=== PATIENT | male | born 1960 | race Caucasian/White ===

== ENCOUNTER 2019-07-08 11:01 | Inpatient (IN) | payer MEDICAID ==
[~2019-07-08] VITALS: Ht 190.5 cm; Wt 127.0 kg
[2019-07-08] VITALS (14 sets, daily range): BP systolic 139–176; BP diastolic 78–98
--- NOTE | 2019-07-08 11:05 | NUR ---
CALLED RT TO COME TO BEDSIDE
[2019-07-08] MEDS ORDERED: Magnesium 1GM/D5W 100ML PREMIX 200 ML IV ONE ×2 (11:07→11:16)
--- NOTE | 2019-07-08 11:10 | NUR ---
BIBA RA 79 from home "SOB/Wheezing sats 88 RA given 5mg albuterol". PATIENT A/OX4, C/O SOB, LABORED BREATHING, ALSO C/O CHEST PAIN. PATIENT CHANGED INTO GOWN, ATTACHED TO THE PLANT ECOLOGIST. VP COMMUNICATIONS AT BEDSIDE FOR EVAL. NEEDS ATTENDED.
[2019-07-08] MEDS ORDERED: IPRATROPIUM NEB FS 0.5 MG/2.5 ML AMPUL.NEB ONE (11:12)
[2019-07-08] MEDS ORDERED: ALBUTEROL FS 2.5 MG/3 ML VIAL.NEB ONE (11:12)
[2019-07-08] MEDS ORDERED: methylPREDNISolone SOD SUCC 125 MG/2ML VIAL ONE (11:16)
--- NOTE | 2019-07-08 11:20 | NUR ---
IV LINES ESTABLISHED, BLOOD DRAWN AND SENT TO LAB. CAD DESIGNER DRAFTER AT BEDSIDE FOR CXR. PATIENT CURRENTLY RECEIVING BREATHING TREATMENT. RT AT BEDSIDE.
[2019-07-08 11:21] LABS: BASOPHILS % (AUTO) 0.2 % (0.0-2.0); HEMATOCRIT 35 % (39-51); HEMOGLOBIN 12.4 g/dL (13.5-17.5); LYMPHOCYTES # (AUTO) 0.6 /CMM (0.8-4.8); LYMPHOCYTES % (AUTO) 5.2 % (20.0-44.0); MEAN CORPUSCULAR HGB CONC 35 g/dl (31.0-36.0); MEAN CORPUSCULAR VOLUME 92 fL (80-96); MONOCYTES # (AUTO) 0.9 /CMM (0.1-1.30); NEUTROPHILS # (AUTO) 10.2 /CMM (1.8-8.9); NEUTROPHILS % (AUTO) 86.6 % (43.0-81.0); PLATELET COUNT (AUTO) 334 /CMM (150-450); RED BLOOD CELL COUNT(AUTO) 3.84 MIL/uL (4.5-6.0); WHITE BLOOD COUNT (AUTO) 11.7 K/uL (4.3-11.0)
[2019-07-08] MEDS ORDERED: methylPREDNISolone SOD SUCC 125 MG/2ML VIAL IV ONE (11:30)
[2019-07-08] MEDS ORDERED: IPRATROPIUM NEB FS 0.5 MG/2.5 ML AMPUL.NEB NEB ONE (11:30)
[2019-07-08] MEDS ORDERED: ALBUTEROL FS 2.5 MG/3 ML VIAL.NEB CONTNEB ONE (11:30)
[2019-07-08] MEDS ORDERED: CLON2TAB11 PO (11:32)
[2019-07-08 11:42] LABS: ALANINE AMINOTRANSFERASE 57 U/L (12-78); ALBUMIN 3.2 g/dL (3.4-5.0); ALKALINE PHOSPHATASE 233 U/L (46-116); ASPARTATE AMINOTRANSFERASE 68 U/L (15-37); B-TYPE NATRIURETIC PEPTIDE 917 PG/ML (0-125); BILIRUBIN,DIRECT 0.3 mg/dL (0.0-0.2); BILIRUBIN,TOTAL 0.7 mg/dL (0.2-1.0); CALCIUM, SERUM 8.8 mg/dL (8.5-10.1); CARBON DIOXIDE 25 mmol/L (21-32); CREATININE 0.7 mg/dL (0.6-1.3); GLUCOSE 147 mg/dL (74-106); POTASSIUM 5.3 mmol/L (3.5-5.1); TOTAL PROTEIN, SERUM 7.5 g/dL (6.4-8.2); UREA NITROGEN, BLOOD 7 mg/dL (7-18)
[2019-07-08 11:43] LABS: CHLORIDE 74 mmol/L (98-107); SODIUM SERUM 108 mmol/L (136-145)
[2019-07-08] MEDS ORDERED: IOHEXOL-350 100 ML VIAL IV ONE (11:44)
[2019-07-08] MEDS ORDERED: CT SWABBABLE VALVE TRANS SET 1 EA INFUS.SET MC ONE (11:44)
[2019-07-08] MEDS ORDERED: IV NS 0.9% 250 ML IV ONE (11:44)
[2019-07-08] MEDS ORDERED: IV Sodium Chloride 3% 500 ML 500 ML IV ONE (12:00)
[2019-07-08] MEDS ORDERED: CEFTRIAXONE 1GM BAG (ER ONLY) 50 ML IV ONE (12:00)
[2019-07-08] MEDS ORDERED: AZITHROMYCIN 500 MG in IV D5W 250 ML IV ONE (12:00)
[2019-07-08] MEDS ORDERED: LORAZEPAM INJ 2 MG/ML VIAL ONE (12:21)
[2019-07-08] MEDS ORDERED: LORAZEPAM INJ 2 MG/ML VIAL IV ONE (12:30)
--- NOTE | 2019-07-08 12:39 | NUR ---
CALLED [employer]. VENEER CLIPPER WAS PAGED.
--- NOTE | 2019-07-08 12:49 | NUR ---
PER ADMITTING, PATIENT OK TO STAY. PATIENT A/OX4, FAMILY AT BEDSIDE, NO DISTRESS NOTED. STILL ON BREATHING TREATMENT.
[2019-07-08] MEDS ORDERED: FUROSEMIDE 20 MG/2 ML VIAL IV ONE (13:00)
[2019-07-08] MEDS ORDERED: NITROGLYCERIN 30 GM TUBE TP ONE (13:00)
--- NOTE | 2019-07-08 13:02 | NUR ---
CALLED DR JOSHUA SHAY DR
[2019-07-08] MEDS ORDERED: FUROSEMIDE 20 MG/2 ML VIAL ONE (13:04)
[2019-07-08] MEDS ORDERED: NITROGLYCERIN PACKET 1 GM PACKET ONE (13:04)
--- NOTE | 2019-07-08 13:06 | NUR ---
CALLED [facility] FOR ICU BED
--- NOTE | 2019-07-08 13:30 | NUR ---
REPORT GIVEN TO GERMÁN SAWYER.
--- NOTE | 2019-07-08 13:58 | NUR ---
PATIENT TRANSFERRED TO ROOM 262 VIA ACLS PROTOCOL. O2 AT 8LPM VIA SIMPLE MASK. ENDORSED TO ICU NURSE.
--- NOTE | 2019-07-08 14:08 | NUR ---
RN NOTES RECEIVED PT ON BED FROM ER IN ROOM 262, PT IS A/Ox4, ON 5L SIMPLE MASK, O2 SAT 92%, ON TELE ST, HR IN 100'S , NO SKIN ISSUES NOTED, L AND R AC IV SITE G 18 CLEAN, DRY AND INTACT , C/O PAIN ON HIS ABDOMEN , PT STATED PAIN IS NOT RADIATING ANYWHERE, IV 3%NS AT 15CCC/HR RUNNING VIA R HAND IV SITE, DR LEWIS NOTIFED REGARDING ADMISSION ORDERS, SR UP x3, CALL LIGHT WITHIN EASY REACH, BED LOCKED AND IN LOWEST POSITION, CONTINUE TO MONITOR.
[2019-07-08] MEDS ORDERED: LORAZEPAM 1 MG TABLET PO PRN (15:00)
[2019-07-08] MEDS: IBUPROFEN 400 MG TABLET PO SCH ×2 (15:23→20:39)
--- NOTE | 2019-07-08 15:39 | NUR ---
RN NOTES OK TO GIVE ATIVAN 1MG PO x1 NOW PER DR LEWIS ORDER .
--- NOTE | 2019-07-08 15:46 | NUR ---
RN NOTES DR LEWIS NOTIFED REGARDING LA = 5.9
--- NOTE | 2019-07-08 16:00 | NUR ---
RN NOTES 3% NS IV RATE INCREASED TO 50 CC/HR PER DR. LEWIS ORDER .
[2019-07-08] MEDS: CLONIDINE HCL 0.1 MG TABLET PO PRN (16:25)
[2019-07-08] MEDS: THIAMINE HCL 100 MG TABLET PO SCH (16:25)
[2019-07-08] MEDS: FOLIC ACID 1 MG TABLET PO SCH (16:25)
[2019-07-08] MEDS: CHLORDIAZEPOXIDE HCL 25 MG CAPSULE PO SCH (16:25)
[2019-07-08] MEDS: COLCHICINE 0.6 MG TABLET PO SCH (17:07)
[2019-07-08] MEDS: IV Sodium Chloride 3% 500 ML 500 ML IV SCH (17:08)
--- NOTE | 2019-07-08 18:00 | NUR ---
RN NOTES PT IS RESTLESS AND ANXIOUS AT TIMES , SR UP X3, 3% NS AT 50CC/HR RUNNING , SR UP x3, CALL LIGHT WITHIN EASY REACH, BED LOCKED AND IN LOWEST POSITION, WILL ENDOSE TO HONING MACHINE OPERATOR NURSE FOR CONTINUITY OF CARE .
--- NOTE | 2019-07-08 18:23 | NUR ---
RN NOTES PT C/O ABDOMINAL PAIN, DR LEWIS NOTIFIED , NEW ORDER RECEIVED.
[2019-07-08] MEDS: ONDANSETRON HCL/PF 4 MG/2 ML VIAL IV PRN ×2 (18:35→22:21)
[2019-07-08] MEDS: HYDROMORPHONE 1 MG/1 ML DISP.SYRIN IV PRN ×2 (18:35→22:34)
--- NOTE | 2019-07-08 20:00 | NUR ---
RN NOTES RECEIVED PATIENT AWAKE WATCHING TV ON BED WITH O2 5LPM VIA SIMPLE MASK. SATURATION >90%. NO ACUTE RESPIRATORY DISTRESS. AFEBRILE. COLD TO TOUCH AND SWEATING A LOT. PER PATIENT HE ATE DINNER WELL. SR WITH FIRST DEGREE AVB ON TELE MONITOR. COMPLAINED OF UPPER GASTRIC PAIN AND CHEST PAIN. TROPONIN LEVEL WNL. DISTENDED AND FIRM ABDOMEN NOTED. PER PATIENT HE DRINKS ALCOHOL ALMOST EVERYDAY WELL EARLY IN THE MORNING. DENIES NAUSEA AND VOMITING. PRN PAIN MEDICINE GIVEN ORDERED AND ATIVAN FOR ANXIETY FOR POSS. ALCOHOL WITHDRAWAL. WILL CONTINUE TO MONITOR.
[2019-07-08 20:16] LABS: CALCIUM, SERUM 8.5 mg/dL (8.5-10.1); CARBON DIOXIDE 25 mmol/L (21-32); CREATININE 0.8 mg/dL (0.6-1.3); GLUCOSE 208 mg/dL (74-106); POTASSIUM 5.4 mmol/L (3.5-5.1); UREA NITROGEN, BLOOD 6 mg/dL (7-18)
[2019-07-08 20:19] LABS: CHLORIDE 77 mmol/L (98-107); SODIUM SERUM 109 mmol/L (136-145)
[2019-07-08] MEDS: PANTOPRAZOLE 40 MG TABLET.DR PO SCH (20:38)
[2019-07-08] MEDS: LORAZEPAM 1 MG TABLET PO PRN (20:39)
--- NOTE | 2019-07-08 22:39 | NUR ---
REED DIPPER NOTES RECEIVED CALL FROM DR LEWIS, SODIUM LEVEL 109, RELAYED TO . NO NEW ORDERS RECEIVED AT THIS TIME, PRIMARY NURSE SEBASTIEN NOTIFIED, CHARGE NURSE ESTEFANY NOTIFIED
--- NOTE | 2019-07-08 22:50 | NUR ---
RN NOTES CALLED AND SPOKE TO JOSHUA SCALES REGARDING PATIENT SODIUM 109 AND CHLORIDE 77 WELL POTASSIUM OF 5.4 AND PATIENT IS BEEN COMPLAINING OF UPPER GASTRIC PAIN AND VOMITED X1 WITH FOOD CONTENT. MD AWARE AND WITH ORDER TO GIVE PROTONIX BID. NOTED AND CARRIED OUT ORDER.
[2019-07-09] VITALS (32 sets, daily range): BP systolic 113–187; BP diastolic 61–117
[2019-07-09] MEDS: CLONIDINE HCL 0.1 MG TABLET PO PRN ×2 (00:12→13:24)
[2019-07-09] MEDS ORDERED: IV Sodium Chloride 3% 500 ML 500 ML IV ONE (02:02)
[2019-07-09] MEDS: IV Sodium Chloride 3% 500 ML 500 ML IV SCH ×2 (02:06→10:41)
[2019-07-09] MEDS: HYDROMORPHONE 1 MG/1 ML DISP.SYRIN IV PRN ×4 (02:15→20:27)
[2019-07-09 04:20] LABS: HEMATOCRIT 33 % (39-51); HEMOGLOBIN 11.7 g/dL (13.5-17.5); LYMPHOCYTES # (AUTO) 0.5 /CMM (0.8-4.8); LYMPHOCYTES % (AUTO) 3.8 % (20.0-44.0); MEAN CORPUSCULAR HGB CONC 36 g/dl (31.0-36.0); MEAN CORPUSCULAR VOLUME 92 fL (80-96); MONOCYTES # (AUTO) 1.4 /CMM (0.1-1.30); MONOCYTES % (AUTO) 11.5 % (2.0-12.0); NEUTROPHILS # (AUTO) 10.1 /CMM (1.8-8.9); NEUTROPHILS % (AUTO) 84.7 % (43.0-81.0); PLATELET COUNT (AUTO) 319 /CMM (150-450); RED BLOOD CELL COUNT(AUTO) 3.59 MIL/uL (4.5-6.0); WHITE BLOOD COUNT (AUTO) 11.9 K/uL (4.3-11.0)
[2019-07-09 04:33] LABS: ALANINE AMINOTRANSFERASE 50 U/L (12-78); ALKALINE PHOSPHATASE 211 U/L (46-116); ASPARTATE AMINOTRANSFERASE 49 U/L (15-37); BILIRUBIN,TOTAL 0.7 mg/dL (0.2-1.0); CALCIUM, SERUM 8.8 mg/dL (8.5-10.1); CARBON DIOXIDE 28 mmol/L (21-32); CREATININE 0.8 mg/dL (0.6-1.3); GLUCOSE 155 mg/dL (74-106); POTASSIUM 5.7 mmol/L (3.5-5.1); TOTAL PROTEIN, SERUM 7.2 g/dL (6.4-8.2); UREA NITROGEN, BLOOD 10 mg/dL (7-18)
[2019-07-09] MEDS: ONDANSETRON HCL/PF 4 MG/2 ML VIAL IV PRN ×4 (04:44→20:27)
[2019-07-09] MEDS: IBUPROFEN 400 MG TABLET PO SCH (05:00)
--- NOTE | 2019-07-09 05:00 | NUR ---
RN NOTES HELD PO MEDS AT THIS TIME, PATIENT NAUSEATED AND VOMITED X4.
[2019-07-09 05:03] LABS: SODIUM SERUM 114 mmol/L (136-145)
[2019-07-09 05:04] LABS: CHLORIDE 80 mmol/L (98-107)
--- NOTE | 2019-07-09 06:30 | NUR ---
RN NOTES INFORMED AND UPDATED DR. LEWIS THAT PATIENT STILL VOMITING WITH COFFEE GROUND EMESIS X 5 AND PO MEDS WAS BEEN HELD. PATIENT COMPLAINED OF UPPER GASTRIC PAIN AND CHEST PAIN BUT PRN MEDICINE HELPED WITH PAIN. PER MD TO HAVE A GI CONSULT AND ORDER NPO FOR NOW. NOTED AND CARRIED OUT ORDER. PATIENT MADE AWARE. WILL ENDORSED CONTINUITY OF CARE TO AM NURSE.
[2019-07-09] MEDS ORDERED: SODIUM POLYSTYRENE SULFONATE 15 G/60 ML BOTTLE PO ONE (08:30)
[2019-07-09] MEDS: FOLIC ACID 1 MG TABLET PO SCH (08:43)
[2019-07-09] MEDS: CHLORDIAZEPOXIDE HCL 25 MG CAPSULE PO SCH ×2 (08:43→17:29)
[2019-07-09] MEDS: THIAMINE HCL 100 MG TABLET PO SCH (08:43)
[2019-07-09] MEDS: PANTOPRAZOLE 40 MG TABLET.DR PO SCH (08:43)
[2019-07-09] MEDS ORDERED: DEXTROSE 50%-WATER 50 ML DISP.SYRIN IV PRN (09:00)
[2019-07-09] MEDS: PANTOPRAZOLE 40 MG VIAL IV SCH ×2 (09:31→17:34)
--- NOTE | 2019-07-09 09:50 | NUR ---
RN NOTES 07-RECEIVED PATIENT FROM RN. PATIENT AWAKE, ALERT. PER REPORT HAD SEVERAL EPISODES OF EMESIS. PMD NOTIFIED. 09-SEEN BY DR LEWIS EARLIER, MD SHOWED PATIENT EMESIS AFTER PO MED GIVEN. MD WITH ORDERS. MD DISCUSSED PLANS OF CARE WITH PATIENT
[2019-07-09 10:03] LABS: CALCIUM, SERUM 8.9 mg/dL (8.5-10.1); CREATININE 0.7 mg/dL (0.6-1.3); POTASSIUM 5.5 mmol/L (3.5-5.1)
[2019-07-09] MEDS: COLCHICINE 0.6 MG TABLET PO SCH ×3 (10:36→17:29)
[2019-07-09] MEDS: BLOOD SUGAR DIAGNOSTIC 1 EACH STRIP IN SCH ×2 (11:10→17:43)
[2019-07-09] MEDS: LORAZEPAM INJ 2 MG/ML VIAL IV PRN ×2 (11:28→18:17)
[2019-07-09] MEDS: INSULIN REGULAR, HUMAN 100 UNIT/ML 3 ML VIAL SQ PRN (12:20)
[2019-07-09 14:10] LABS: CREATININE 0.7 mg/dL (0.6-1.3); POTASSIUM 5.1 mmol/L (3.5-5.1)
--- NOTE | 2019-07-09 14:53 | NUR ---
RN NOTES 1230-KAYEXALATE GIVEN ORDERED, PATIENT HAD GOOD AMOUNT OF STOOLS. DR LEWIS NOTIFIED OF BMP RESULTS, MD WITH ORDERS.CONTINUE MONITOR PATIENT STATUS 1400- PATIENT FATHER ZEYNEP VISITS, UPDATED HIM OF PATIENT STATUS. CONTINUE MONITOR PATIENT
--- NOTE | 2019-07-09 19:30 | NUR ---
RN NOTES PATIENT IS AWAKE AND WATCHING TV ON BED. WITH O2 5LPM VIA MASK POONAM. WELL NO ACUTE RESPIRATORY DISTRESS. AFEBRILE. NO EPISODE OF VOMITING PER REPORT. PATIENT LOOKS COMFORTABLE AT THIS TIME. TELE MONITOR REVEALS SR WITH FIRST DEGREE AVB WITH BBB. IV SITE ON RAC AND RFA INTACT AND PATENT RUNNING WITH 0.3 % NACL @ 50 ML.HR PATIENT DENIES CHEST PAIN OR N/V. BED LOCKED AND IN LOWEST POSITION. KEPT CALL LIGHT WITHIN EASY REACH. WILL CONTINUE TO MONITOR.
[2019-07-09 19:54] LABS: CALCIUM, SERUM 8.8 mg/dL (8.5-10.1); CREATININE 0.7 mg/dL (0.6-1.3); POTASSIUM 5.1 mmol/L (3.5-5.1)
--- NOTE | 2019-07-09 21:00 | NUR ---
RN NOTES PATIENT COMPLAINED THAT HE FELT THAT HIS NOSE ARE SO DRY. SATURATION REMAINED >92%. CHANGED O2 VIA MASK TO NC @ 4LPM VIA HUMIDIFIER PLACED BY RT. ALL NEEDS ATTENDED. INSTRUCTED TO USE CALL LIGHT FOR ASSISTANCE.
[2019-07-09] MEDS: IV NS 0.9% 1,000 ML IV PRN (21:40)
[2019-07-10] VITALS (23 sets, daily range): BP systolic 121–175; BP diastolic 74–104
[2019-07-10] MEDS: BLOOD SUGAR DIAGNOSTIC 1 EACH STRIP IN SCH ×4 (00:14→17:24)
[2019-07-10] MEDS: LORAZEPAM INJ 2 MG/ML VIAL IV PRN ×5 (00:20→20:42)
[2019-07-10] MEDS: HYDROMORPHONE 1 MG/1 ML DISP.SYRIN IV PRN ×6 (00:37→20:43)
[2019-07-10] MEDS: ONDANSETRON HCL/PF 4 MG/2 ML VIAL IV PRN ×3 (02:51→16:08)
[2019-07-10] MEDS: CLONIDINE HCL 0.1 MG TABLET PO PRN ×2 (03:31→11:50)
[2019-07-10 04:31] LABS: BASOPHILS % (AUTO) 0.1 % (0.0-2.0); HEMATOCRIT 34 % (39-51); HEMOGLOBIN 11.7 g/dL (13.5-17.5); LYMPHOCYTES # (AUTO) 0.7 /CMM (0.8-4.8); MEAN CORPUSCULAR HGB CONC 34 g/dl (31.0-36.0); MEAN CORPUSCULAR VOLUME 94 fL (80-96); MONOCYTES # (AUTO) 1.4 /CMM (0.1-1.30); MONOCYTES % (AUTO) 9.8 % (2.0-12.0); NEUTROPHILS # (AUTO) 12.3 /CMM (1.8-8.9); NEUTROPHILS % (AUTO) 85.1 % (43.0-81.0); PLATELET COUNT (AUTO) 358 /CMM (150-450); RED BLOOD CELL COUNT(AUTO) 3.62 MIL/uL (4.5-6.0); WHITE BLOOD COUNT (AUTO) 14.4 K/uL (4.3-11.0)
[2019-07-10 04:48] LABS: CALCIUM, SERUM 9.2 mg/dL (8.5-10.1); CREATININE 0.7 mg/dL (0.6-1.3); POTASSIUM 4.8 mmol/L (3.5-5.1)
[2019-07-10] MEDS: IV NS 0.9% 1,000 ML IV PRN ×3 (06:28→21:02)
--- NOTE | 2019-07-10 07:00 | NUR ---
RN NOTES PATIENT CONTINUE TO COMPLAINED OF UPPER ABDOMINAL PAIN. AND FEELING NAUSEOUS PRN PAIN AMEDICINE AND ZOFRAN GIVEN ORDERED AND TOLERATED WELL. WITH EPISODE OF SOB AROUND 2AM PLACED BAKD TO SIMPLE MASK @ 5-6 LPM TOLERATED WELL SATURATION >92%. DR. PANDEY RESIDENTIAL PROPERTY CONSULTANT SEEN AND EXAMINED THE PATIENT AT BEDSIDE NNO. KEPT PT CLEAN AND DRY . ENDORSED CONTINUITY OF CARE TO AM NURSE.
--- NOTE | 2019-07-10 08:30 | NUR ---
ICU/RN: Pt requesting pain medication, zofran and ativan around the clock. Educated on medication use, asked pt to describe pain. Pt states "Oh it hurts everywhere. I'm just sore." Alternative pain management techniques offered.
[2019-07-10] MEDS: THIAMINE HCL 100 MG TABLET PO SCH (08:32)
[2019-07-10] MEDS: CHLORDIAZEPOXIDE HCL 25 MG CAPSULE PO SCH ×2 (08:32→16:08)
[2019-07-10] MEDS: FOLIC ACID 1 MG TABLET PO SCH (08:32)
[2019-07-10] MEDS: COLCHICINE 0.6 MG TABLET PO SCH ×2 (08:33→16:08)
[2019-07-10] MEDS: PANTOPRAZOLE 40 MG VIAL IV SCH ×2 (08:33→16:08)
[2019-07-10] MEDS ORDERED: PIPERACILLIN /TAZOBACTAM 3.375 G in IV D5W 50 ML IV ONE ×2 (09:00→12:00)
[2019-07-10] MEDS: AMLODIPINE BESYLATE 5 MG TABLET PO SCH (09:02)
--- NOTE | 2019-07-10 10:45 | NUR ---
ICU/RN: Pt back from radiology for CT ABD
[2019-07-10] MEDS: PIPERACILLIN /TAZOBACTAM 3.375 G in IV D5W 100 ML IV SCH ×2 (12:48→20:42)
--- NOTE | 2019-07-10 13:30 | NUR ---
ICU/RN: Pt s/p thoracentesis. 1060 cc out. Specimen sent to lab as ordered.
--- NOTE | 2019-07-10 15:15 | NUR ---
ICU/RN: manager inventory management, kitchen supervisor discussing insurance request for transfer to contracted facility. Pt currently refuses, states "I don't think I'm stable enough. I would like to speak with the Dr." Dr Wiggins spoke with pt at length regarding poc, pt continues to be agreeable for downgrade to [facility], and understands he may need to be transferred tomorrow am.
--- NOTE | 2019-07-10 16:30 | NUR ---
ICU/RN: Pt anxious, states "I'm nauseous." Administered zofran and ativan for relief.
--- NOTE | 2019-07-10 16:50 | NUR ---
ICU/RN: Pt transferred to [facility] in stable condition, on SM at 8L/min. Belongings and chart transferred. Frequently reminded not to take off O2 mask
--- NOTE | 2019-07-10 17:04 | NUR ---
RN NOTES RECEIVED PATIENT FROM ICU, AWAKE/ALERT X 4, WITH O2 6LPM VIA MASK POONAM. WELL NO ACUTE RESPIRATORY DISTRESS. AFEBRILE. NO EPISODE OF VOMITING. ON TELE MONITOR ST HR 104. DENIES CHEST PAIN OR DICOMFORT, IV SITE RAC G18 AND RFA G20, BOTH FLUSHES WELL, BOTH SITES CLEAR. BED LOCKED AND IN LOWEST POSITION. KEPT CALL LIGHT WITHIN EASY REACH. NEEDS ANTICIPATED. WILL CONTINUE TO MONITOR.
--- NOTE | 2019-07-10 19:31 | NUR ---
RN NOTES PATIENT RESTING FOR NOW. NOT IN ANY DISTRESS. NO SOB,NO PAIN. ALL NEEDS MET FOR NOW. ENDORSED TO NEXT SHIFT FOR YUSEF.
--- NOTE | 2019-07-10 20:00 | NUR ---
RN NOTES RECEIVED PATIENT AWAKE AMBULATING IN THE BATHROOM. AOX4. NO ACUTE RESPIRATORY DISTRESS. PATIENT HAVE O2 6LPM VIA SIMPLE MASK WHILE ON BED SATURATION 94%. SR WITH FIRST DEGREE AVB W/ BBB AND PAC. DENIES CHEST PAIN AND NAUSEA AND VOMITING. IV SITE ON RAC AND RFA INTACT AND PATENT STARTING NS @ 100 ML/HR INTACT AND PATENT AND INFUSING WELL. COMPLAINED OF UPPER GI PAIN AND ANXIETY. PRN PAIN MEDICINE AND ANTI ANXIETY MEDS WILL GIVEN ORDERED. EDUCATED REGARDING HIS DIAGNOSIS AND VERBALIZED UNDERSTANDING. SMALL WHEEZING HEARD WHEN TALKING BUT DIMINISHED ON BILATERAL LUNG SOUND. KEPT PT CLEAN AND DRY. WILL CONTINUE TO MONITOR CATHY LIGHT KEPT WITHIN EASY REACH.
[2019-07-11] VITALS (7 sets, daily range): BP systolic 144–163; BP diastolic 65–91
[2019-07-11] MEDS: BLOOD SUGAR DIAGNOSTIC 1 EACH STRIP IN SCH ×5 (00:28→23:45)
[2019-07-11] MEDS: LORAZEPAM INJ 2 MG/ML VIAL IV PRN ×6 (00:49→22:06)
[2019-07-11] MEDS: HYDROMORPHONE 1 MG/1 ML DISP.SYRIN IV PRN ×6 (00:49→22:00)
[2019-07-11] MEDS: PIPERACILLIN /TAZOBACTAM 3.375 G in IV D5W 100 ML IV SCH ×3 (04:54→20:40)
[2019-07-11 06:39] LABS: BASOPHILS % (AUTO) 0.2 % (0.0-2.0); EOSINOPHILS % (AUTO) 0.1 % (0.0-6.0); HEMATOCRIT 35 % (39-51); HEMOGLOBIN 11.7 g/dL (13.5-17.5); LYMPHOCYTES # (AUTO) 1.4 /CMM (0.8-4.8); MEAN CORPUSCULAR HGB CONC 34 g/dl (31.0-36.0); MEAN CORPUSCULAR VOLUME 93 fL (80-96); MONOCYTES # (AUTO) 1.4 /CMM (0.1-1.30); MONOCYTES % (AUTO) 11.7 % (2.0-12.0); PLATELET COUNT (AUTO) 344 /CMM (150-450); RED BLOOD CELL COUNT(AUTO) 3.71 MIL/uL (4.5-6.0); WHITE BLOOD COUNT (AUTO) 11.8 K/uL (4.3-11.0)
--- NOTE | 2019-07-11 06:56 | NUR ---
RN NOTES PATIENT ASLEEP WELL ON BED. NO ACUTE RESPIRATORY DISTRESS. ON O2 6LPM VIA MASK,BUT ABLE TO TOLERATE ROOM AIR WHEN GOING TO THE BATHROOM AND SATURATION WELL. ANXIETY STILL NOTED. CONTINUE TO COMPLAINED OF UPPER GASTRIC PAIN . PRN PAIN MEDICINE AND ANTI ANXIETY MEDS GIVEN ORDERED. NO SIGNIFICANT CHANGES NO N/V , DENIES CHEST PAIN. KEPT PT CLEAN AND DRY. WILL CONTINUE TO MONITOR, WILL ENDORSE CONTINUITY OF CARE TO AM NURSE.
[2019-07-11 07:11] LABS: CALCIUM, SERUM 8.5 mg/dL (8.5-10.1); CREATININE 0.8 mg/dL (0.6-1.3)
--- NOTE | 2019-07-11 07:30 | NUR ---
[facility] RN AM NOTES RECEIVED PATIENT IN BED, AWAKE/ALERT X 4, WITH O2 6LPM VIA MASK POONAM. ON AND OFF. WELL TOLERATED. NO ACUTE RESPIRATORY DISTRESS. AFEBRILE. NO EPISODE OF VOMITING. ON TELE MONITOR SINUS RHYTHM. DENIES CHEST PAIN OR DISCOMFORT, IV SITE RAC G18 AND RFA G20, BOTH FLUSHES WELL, BOTH SITES CLEAR. BED LOCKED AND IN LOWEST POSITION. KEPT CALL LIGHT WITHIN EASY REACH. NEEDS ANTICIPATED. WILL CONTINUE TO MONITOR.
[2019-07-11] MEDS ORDERED: METOPROLOL TARTRATE 25 MG TABLET PO SCH (09:00)
[2019-07-11] MEDS: FOLIC ACID 1 MG TABLET PO SCH (09:17)
[2019-07-11] MEDS: COLCHICINE 0.6 MG TABLET PO SCH ×2 (09:17→17:38)
[2019-07-11] MEDS: THIAMINE HCL 100 MG TABLET PO SCH (09:17)
[2019-07-11] MEDS: PANTOPRAZOLE 40 MG VIAL IV SCH ×2 (09:17→17:38)
[2019-07-11] MEDS: AMLODIPINE BESYLATE 5 MG TABLET PO SCH (09:18)
[2019-07-11] MEDS: CHLORDIAZEPOXIDE HCL 25 MG CAPSULE PO SCH ×2 (09:20→17:38)
--- NOTE | 2019-07-11 09:30 | NUR ---
RN NOTES DUE MEDS GIVEN
--- NOTE | 2019-07-11 10:45 | NUR ---
RN NOTES PER DR. LEWIS PATIENT FOR TRANSFER TO [facility] ONCE BED IS AVAILABLE. CASE MANAGEMENT AWARE
[2019-07-11] MEDS: Magnesium 1GM/D5W 100ML PREMIX 100 ML IV SCH ×2 (11:49→13:08)
[2019-07-11] MEDS: INSULIN REGULAR, HUMAN 100 UNIT/ML 3 ML VIAL SQ PRN ×2 (11:56→23:48)
[2019-07-11] MEDS: IV NS 0.9% 1,000 ML IV PRN (15:46)
[2019-07-11] MEDS: ONDANSETRON HCL/PF 4 MG/2 ML VIAL IV PRN (15:46)
--- NOTE | 2019-07-11 19:00 | NUR ---
[facility] RN OPENING NOTES RECEIVED PATIENT IN BED, A/OX4, ABLE TO MAKE NEEDS KNOWN. ON OXYGEN 6LPM VIA MASK, NO ACUTE RESPIRATORY DISTRESS OR CARDIAC DISTRESS NOTED. ON TELE MONITOR SR WITH HR 90'S. C/O EPIGASTRIC PAIN 04/16, PRN PAIN MEDICINE WILL BE GIVEN. IV SITE LEFT FA #20, FLUSHING AND PATENT, SITE C/D/I. IV FLUIDS RUNNING ORDERED, NO INFILTRATION NOTED. PATIENT AMBULATORY WITH STEADY GATE. SAFETY MEASURES IN PLACE; CALL LIGHT WITHIN REACH, BED LOCKED AND IN LOWEST POSITION, SIDE RAILS UP X2, HOB ELEVATED. WILL CONTINUE TO MONITOR PT CLOSELY.
--- NOTE | 2019-07-11 19:13 | NUR ---
RN NOTES PATIENT ASLEEP WELL ON BED. NO ACUTE RESPIRATORY DISTRESS. ON O2 6LPM VIA MASK,ON AND OFF, BUT ABLE TO TOLERATE ROOM AIR WHEN GOING TO THE BATHROOM AND SATURATION WELL. ANXIETY STILL NOTED. CONTINUE TO COMPLAINED OF UPPER GASTRIC PAIN . PRN PAIN MEDICINE AND ANTI ANXIETY MEDS GIVEN ORDERED. NO SIGNIFICANT CHANGES NO N/V , DENIES CHEST PAIN. KEPT PT CLEAN AND DRY. WILL CONTINUE TO MONITOR, WILL ENDORSE CONTINUITY OF CARE TO PM NURSE.
[2019-07-11] MEDS: METOPROLOL TARTRATE 25 MG TABLET PO SCH (20:39)
--- NOTE | 2019-07-11 21:55 | NUR ---
[facility] RN NOTES PATIENT STILL REQUESTING FOR ATIVAN AND DILAUDID AT THE SAME TIME DESPITE DISCUSSION OF RISKS. WILL ATTEND TO REQUEST. WILL MONITOR PATIENT CLOSELY.
[2019-07-12] VITALS: BP 140/87
[2019-07-12] MEDS: HYDROMORPHONE 1 MG/1 ML DISP.SYRIN IV PRN ×2 (02:04→06:05)
[2019-07-12] MEDS: LORAZEPAM INJ 2 MG/ML VIAL IV PRN ×3 (02:06→15:25)
[2019-07-12 04:00] VITALS: BP 145/79
--- NOTE | 2019-07-12 04:35 | NUR ---
[facility] RN NOTES PATIENT REFUSING IV FLUIDS DESPITE DISCUSSION OF RISK AND BENEFITS. INSTRUCTED PATIENT TO DRINK MORE WATER INSTEAD. WILL CONT TO MONITOR.
[2019-07-12] MEDS: PIPERACILLIN /TAZOBACTAM 3.375 G in IV D5W 100 ML IV SCH ×3 (05:13→20:28)
[2019-07-12] MEDS: BLOOD SUGAR DIAGNOSTIC 1 EACH STRIP IN SCH ×3 (06:06→18:22)
[2019-07-12 07:01] LABS: BASOPHILS % (AUTO) 0.5 % (0.0-2.0); EOSINOPHILS % (AUTO) 1.5 % (0.0-6.0); HEMATOCRIT 35 % (39-51); HEMOGLOBIN 11.8 g/dL (13.5-17.5); LYMPHOCYTES # (AUTO) 1.8 /CMM (0.8-4.8); LYMPHOCYTES % (AUTO) 22.9 % (20.0-44.0); MEAN CORPUSCULAR HGB CONC 34 g/dl (31.0-36.0); MEAN CORPUSCULAR VOLUME 93 fL (80-96); MONOCYTES # (AUTO) 1.2 /CMM (0.1-1.30); MONOCYTES % (AUTO) 15.4 % (2.0-12.0); NEUTROPHILS # (AUTO) 4.6 /CMM (1.8-8.9); NEUTROPHILS % (AUTO) 59.7 % (43.0-81.0); PLATELET COUNT (AUTO) 352 /CMM (150-450); RED BLOOD CELL COUNT(AUTO) 3.72 MIL/uL (4.5-6.0); WHITE BLOOD COUNT (AUTO) 7.7 K/uL (4.3-11.0)
--- NOTE | 2019-07-12 07:10 | NUR ---
[facility] RN CLOSING NOTES PATIENT IN BED, AWAKE, A/OX4. ON OXYGEN 6LPM VIA MASK, PATIENT NOTED PUTTING MASK ON AND OFF THROUGHOUT SHIFT, NO ACUTE RESPIRATORY DISTRESS OR CARDIAC DISTRESS NOTED. ON TELE MONITOR SR WITH HR 80'S. NOT C/O OF ANY PAIN AT THE MOMENT. IV SITE LEFT FA #20, FLUSHING AND PATENT, SITE C/D/I. IV ANTIBIOTIC RUNNING ORDERED, NO INFILTRATION NOTED. PATIENT AMBULATORY WITH STEADY GATE. SAFETY MEASURES IN PLACE; CALL LIGHT WITHIN REACH, BED LOCKED AND IN LOWEST POSITION, SIDE RAILS UP X2, HOB ELEVATED. ENDORSED TO AM RN FOR YUSEF.
[2019-07-12 07:18] LABS: CALCIUM, SERUM 8.9 mg/dL (8.5-10.1); CREATININE 0.8 mg/dL (0.6-1.3); MAGNESIUM 1.8 mg/dL (1.8-2.4); POTASSIUM 3.3 mmol/L (3.5-5.1)
--- NOTE | 2019-07-12 07:30 | NUR ---
joann rn notes RECEIVED PT IN BED, A/OX4. ON ROOM AIR. SOB ON EXERTION. AMBULATING AROUND ROOM. ABX INFUSING VIA LFA #20: IV SITE NO S/SX OF INFILTRATION/PATENT/FLUSHED. ON TELE SR 81. C/O PAIN IN CHEST/ABD 05/17 NON RADIATING. SAFETY MEASURES IN PLACE. CALL LIGHT IN REACH. WILL CONT TO MONITOR.
[2019-07-12 08:00] VITALS: BP 156/85
[2019-07-12] MEDS: COLCHICINE 0.6 MG TABLET PO SCH ×2 (09:16→16:58)
[2019-07-12] MEDS: METOPROLOL TARTRATE 25 MG TABLET PO SCH ×2 (09:16→20:28)
[2019-07-12] MEDS: FOLIC ACID 1 MG TABLET PO SCH (09:17)
[2019-07-12] MEDS: THIAMINE HCL 100 MG TABLET PO SCH (09:17)
[2019-07-12] MEDS: AMLODIPINE BESYLATE 5 MG TABLET PO SCH (09:17)
[2019-07-12] MEDS ORDERED: POTASSIUM CHLORIDE 20 MEQ TAB.PRT.SR PO ONE (09:30)
--- NOTE | 2019-07-12 09:30 | NUR ---
ESTHETICIAN PERMANENT MAKEUP ARTIST NOTES DR LEWIS ROUNDING WITH PT. NOTIFIED MD OF DILAUDID ORDER. MD CHANGED TO BRIANNA. PT IN AGREEMENT WITH TREATMENT PLAN.
[2019-07-12 09:34] LABS: THYROID STIMULATING HORMONE 1.879 uIU/mL (0.358-3.74)
[2019-07-12] MEDS ORDERED: ACETAMINOPHEN 325 MG TABLET PO PRN (10:00)
[2019-07-12] MEDS: HYDROCODONE/APAP 5/325MG 1 EACH TABLET PO PRN ×2 (10:33→15:25)
[2019-07-12 12:00] VITALS: BP 161/97
[2019-07-12 16:00] VITALS: BP 163/92
[2019-07-12] MEDS ORDERED: OLANZAPINE 10 MG VIAL IM ONE (16:00)
--- NOTE | 2019-07-12 16:00 | NUR ---
telegraph office telephone clerk notes contacted dr red re: pt's anxiety, pt walking around unit with iv pole and belongings stating his parents are outside and he wants to leave now. per dr red: give him 5mg zyprexa IM one time. will carry out orders and monitor pt.
[2019-07-12] MEDS: LORAZEPAM 1 MG TABLET PO PRN (16:58)
--- NOTE | 2019-07-12 18:00 | NUR ---
relay telegrapher notes pt pulled out iv. notified charge nurse. and reinserted new iv on right wrist.
--- NOTE | 2019-07-12 18:54 | NUR ---
supervisor telephone answering service notes pt in bed, resting, after removing iv on left forearm. no bleeding noted. iv reinserted on right wrist. vss. pt not obeying instruction re: fluids etc. endorsed to pm nurse for shandra. bed in locked/lowest position. call light in reach.
--- NOTE | 2019-07-12 19:00 | NUR ---
manager telecom notes pt pulled out second iv. was able to save it. notified charge nurse. called dr red; ordered 1-1 sitter.
--- NOTE | 2019-07-12 19:25 | NUR ---
TELE/RN NOTES PATIENT RECEIVED IN BED, AWAKE, A/O X4 WITH PERIODS OF CONFUSION AND DISORIENTATION. NO S/S OF ACUTE DISTRESS NOTED, RESPIRATION EVEN AND UNLABORED. NO SOB NOTED. PATIENT DENIES ANY PAIN AT THIS TIME. ON TELE MONITORING WITH SINUS RHYTHM. IV SITE WITH NO S/S OF INFECTION/ INFILTRATION, WITH FLUIDS ORDERED. SAFETY MAINTAINED, BED AT THE LOWEST LOCKED POSITION, CALL LIGHT WITHIN REACH. WILL CONTINUE TO MONITOR PATIENT PER PLAN OF CARE.
[2019-07-12] MEDS ORDERED: OLANZAPINE 10 MG VIAL IM PRN (19:30)
[2019-07-12 20:00] VITALS: BP_SYST 152; BP_SYST 162; BP_DIAS 78; BP_DIAS 84
[2019-07-12] MEDS: PANTOPRAZOLE 40 MG TABLET.DR PO SCH (20:28)
[2019-07-13] VITALS: BP 158/84
[2019-07-13] MEDS: BLOOD SUGAR DIAGNOSTIC 1 EACH STRIP IN SCH ×3 (00:16→12:17)
[2019-07-13] MEDS: LORAZEPAM 1 MG TABLET PO PRN ×3 (01:48→12:24)
[2019-07-13] MEDS: IV NS 0.9% 1,000 ML IV PRN (01:52)
[2019-07-13 04:00] VITALS: BP 146/82
[2019-07-13] MEDS: PIPERACILLIN /TAZOBACTAM 3.375 G in IV D5W 100 ML IV SCH (05:34)
[2019-07-13 07:04] LABS: BASOPHILS % (AUTO) 0.4 % (0.0-2.0); EOSINOPHILS % (AUTO) 0.6 % (0.0-6.0); HEMATOCRIT 38 % (39-51); HEMOGLOBIN 13.1 g/dL (13.5-17.5); LYMPHOCYTES # (AUTO) 0.8 /CMM (0.8-4.8); LYMPHOCYTES % (AUTO) 11.8 % (20.0-44.0); MEAN CORPUSCULAR HGB CONC 34 g/dl (31.0-36.0); MEAN CORPUSCULAR VOLUME 93 fL (80-96); MONOCYTES # (AUTO) 1.1 /CMM (0.1-1.30); NEUTROPHILS % (AUTO) 71.2 % (43.0-81.0); PLATELET COUNT (AUTO) 362 /CMM (150-450); RED BLOOD CELL COUNT(AUTO) 4.08 MIL/uL (4.5-6.0); WHITE BLOOD COUNT (AUTO) 7.1 K/uL (4.3-11.0)
--- NOTE | 2019-07-13 07:05 | NUR ---
TELE/RN NOTES PATIENT REMAINED IN BED, NO S/S OF ACUTE DISTRESS NOTED, RESPIRATION EVEN AND UNLABORED. NO SOB NOTED. PATIENT DENIES ANY PAIN AT THIS TIME. ON TELE MONITORING WITH SINUS RHYTHM. IV SITE WITH NO S/S OF INFECTION/ INFILTRATION, WITH FLUIDS ORDERED. SAFETY MAINTAINED, BED AT THE LOWEST LOCKED POSITION, CALL LIGHT WITHIN REACH. SITTER AT THE BED SIDE. ALL MEDS GIVEN ORDERED, TOLERATED WELL. WILL ENDORSE TO AM SHIFT NURSE FOR YUSEF.
[2019-07-13 07:31] LABS: CALCIUM, SERUM 8.9 mg/dL (8.5-10.1); CREATININE 0.8 mg/dL (0.6-1.3); POTASSIUM 3.3 mmol/L (3.5-5.1)
[2019-07-13] MEDS ORDERED: AMOX-430 PO (07:58)
[2019-07-13] MEDS ORDERED: Colchicine PO (07:58)
[2019-07-13] MEDS ORDERED: METO25TA20 PO (07:58)
[2019-07-13] MEDS ORDERED: AMLO5TAB9 PO (07:58)
[2019-07-13] MEDS ORDERED: PANT40TA2 PO (07:58)
[2019-07-13 08:00] VITALS: BP 156/93
[2019-07-13] MEDS ORDERED: POTASSIUM CHLORIDE 20 MEQ TAB.PRT.SR PO ONE (08:00)
[2019-07-13] MEDS: HYDROCODONE/APAP 5/325MG 1 EACH TABLET PO PRN ×2 (08:11→12:24)
[2019-07-13] MEDS: AMLODIPINE BESYLATE 5 MG TABLET PO SCH (08:12)
[2019-07-13] MEDS: FOLIC ACID 1 MG TABLET PO SCH (08:12)
[2019-07-13] MEDS: THIAMINE HCL 100 MG TABLET PO SCH (08:13)
[2019-07-13] MEDS: PANTOPRAZOLE 40 MG TABLET.DR PO SCH (08:13)
[2019-07-13] MEDS: METOPROLOL TARTRATE 25 MG TABLET PO SCH (08:13)
[2019-07-13] MEDS: COLCHICINE 0.6 MG TABLET PO SCH (08:13)
[2019-07-13 12:00] VITALS: BP 152/90
[2019-07-13] MEDS ORDERED: INFLUENZA VACCINE 2019-20 0.5 ML DISP.SYRIN IM ONE (12:00)
[2019-07-13] MEDS ORDERED: PNEUMOCOCCAL 23-VAL P-SAC VAC 0.5 ML VIAL SQ ONE (12:00)
--- NOTE | 2019-07-13 13:20 | NUR ---
RN NOTE PT DISCHARGED HOME WITH FAMILY VIA OWN TRANSPORTATION, IN STABLE CONDITION, CLEARED BY DR PANDEY PRIOR TO SENDING HIM HOME, PT WILL NEED TO FOLLOW UP WITH PRIMARY DOCTOR, COUNSELING SPECIALIST AND GI. EXIT CARE DONE, DISCHARGE INSTRUCTIONS PROVIDED, TEACHING DONE, PT VERBALIZED UNDERSTANDING, PRESCRIPTION GIVEN, BELONGINGS LIST SIGNED AND GIVEN TO PT, IV SITE AND ID BAND REMOVED, PNA AND FLU SHOT GIVEN, COPIES OF THE PAPER PLACED IN THE CHART, PT HAD MINOR BRUISES AND SCRATCHES, PICTURES TAKEN AND PLACED IN THE CHART.
== END 2019-07-13 13:20 | disposition home or self-care (01) | DRG 137 ==
LOC: ER 11:04 → ICU 13:35 → TELE-TD 07-10 16:44 → ICU 07-10 16:46 → TELE-TD 07-10 16:54 → ICU 07-10 16:54 → TELE-TD 07-11 18:35 → TELE1 07-12 09:58 → MEDSG1 07-13 09:17 → UNDODISIN 07-13 11:28 → MEDSG1 07-13 11:57
PROVIDERS: ADMIT Internal Medicine; ATTEND Internal Medicine
DX: J69.0 Pneumonitis due to inhalation of food and vomit (principal); J96.00 Acute respiratory failure, unspecified whether with hypoxia or hypercapnia; J90 Pleural effusion, not elsewhere classified; K29.01 Acute gastritis with bleeding; E86.0 Dehydration; I48.91 Unspecified atrial fibrillation; E87.2 Acidosis; I31.3 Pericardial effusion (noninflammatory); E87.1 Hypo-osmolality and hyponatremia; I50.9 Heart failure, unspecified; I31.9 Disease of pericardium, unspecified; E87.5 Hyperkalemia; K29.00 Acute gastritis without bleeding; I11.9 Hypertensive heart disease without heart failure; F41.9 Anxiety disorder, unspecified; I25.10 Atherosclerotic heart disease of native coronary artery without angina pectoris; Z87.891 Personal history of nicotine dependence; F10.239 Alcohol dependence with withdrawal, unspecified; Y90.6 Blood alcohol level of 120-199 mg/100 ml; F43.9 Reaction to severe stress, unspecified; E87.70 Fluid overload, unspecified; J98.11 Atelectasis; N62 Hypertrophy of breast
CPT/HCPCS: 36415; 71045-TC; 76942-TC; 80048-TC; 80053-TC; 80076-TC; 82140-TC; 82962-TC; 83605-TC; 83735-TC; 83880; 84439-TC; 84443-TC; 84484-TC; 85025-TC; 85610-TC; 87040-TC; 87070-TC; 87081-TC; 88112-TC; 88305-TC; 88312-TC; 89051-TC; 90732; 93307-TC; 97116-TC; 97530-TC; C9113; G0378; G0480; J0456; J0696; J1170; J1815; J1940; J2060; J2405; J2543; J2930; J3475; J3490; J7030; J7050; J7060; Q2036; Q9967

== ENCOUNTER 2019-10-28 15:30 | Emergency (ER) | payer MEDICAID ==
[~2019-10-28] VITALS: Ht 182.9 cm; Wt 108.9 kg
[~2019-10-28 15:30] MED LIST: AMLO5TAB9 PO; AMOX-430 PO; CLON2TAB11 PO; Colchicine PO; METO25TA20 PO; PANT40TA2 PO
--- NOTE | 2019-10-28 15:50 | NUR ---
JENNIFER PEREIRA 79 From [facility] "Witnessed Seizure by bystander on arrival he was confused/post ictal. Sweating BS-124. Patient awake alert and oriented, slowly improving. Breathing even and unlabored, no sob noted, needs attended, placed on 2lpm via nc due to spo2 of 89% on room air. Seizure precaution observed.
--- NOTE | 2019-10-28 16:00 | NUR ---
PATIENT CONSTANTLY ASKING FOR HIS CELLPHONE, NO CELLPHONE FOUND SINCE ADMISSION, INFORMED PATIENT, LOOKED INSIDE THE ROOM BUT UNABLE TO FIND THE CELLPHONE.
--- NOTE | 2019-10-28 16:00 | NUR ---
DR. RASHEED AT BEDSIDE FOR EVAL.
[2019-10-28] MEDS ORDERED: LORAZEPAM INJ 2 MG/ML VIAL ONE (16:03)
[2019-10-28 16:11] LABS: BASOPHILS # (AUTO) 0.1 /CMM (0.0-0.2); BASOPHILS % (AUTO) 0.5 % (0.0-2.0); HEMATOCRIT 42 % (39-51); HEMOGLOBIN 14.1 g/dL (13.5-17.5); LYMPHOCYTES # (AUTO) 3.3 /CMM (0.8-4.8); LYMPHOCYTES % (AUTO) 31.3 % (20.0-44.0); MEAN CORPUSCULAR HGB CONC 34 g/dl (31.0-36.0); MEAN CORPUSCULAR VOLUME 98 fL (80-96); MONOCYTES # (AUTO) 1.3 /CMM (0.1-1.30); MONOCYTES % (AUTO) 12.4 % (2.0-12.0); NEUTROPHILS # (AUTO) 5.8 /CMM (1.8-8.9); NEUTROPHILS % (AUTO) 54.8 % (43.0-81.0); PLATELET COUNT (AUTO) 196 /CMM (150-450); RED BLOOD CELL COUNT(AUTO) 4.25 MIL/uL (4.5-6.0); WHITE BLOOD COUNT (AUTO) 10.5 K/uL (4.3-11.0)
[2019-10-28] MEDS ORDERED: METO25TA20 PO (16:17)
[2019-10-28] MEDS ORDERED: AMLO5TAB9 PO (16:17)
[2019-10-28] MEDS ORDERED: COLC0.6C3 PO (16:17)
[2019-10-28] MEDS ORDERED: DIPH25CA51 PO (16:18)
[2019-10-28 16:22] LABS: CALCIUM, SERUM 9.7 mg/dL (8.5-10.1); CARBON DIOXIDE 20 mmol/L (21-32); CHLORIDE 88 mmol/L (98-107); CREATININE 1.3 mg/dL (0.6-1.3); GLUCOSE 158 mg/dL (74-106); SODIUM SERUM 129 mmol/L (136-145); UREA NITROGEN, BLOOD 18 mg/dL (7-18)
--- NOTE | 2019-10-28 16:28 | NUR ---
PATIENT TAKEN TO CT.
[2019-10-28 16:29] LABS: POTASSIUM 2.8 mmol/L (3.5-5.1)
[2019-10-28] MEDS ORDERED: LORAZEPAM INJ 2 MG/ML VIAL IVP ONE (16:30)
[2019-10-28] MEDS ORDERED: LEVETIRACETAM (500MG) 1,000 MG in IV NS 0.9% 100 ML IV SCH (16:30)
[2019-10-28 16:32] LABS: BILIRUBIN,TOTAL 2.4 mg/dL (0.2-1.0)
[2019-10-28 16:33] LABS: ALANINE AMINOTRANSFERASE 125 U/L (12-78); ALBUMIN 4.3 g/dL (3.4-5.0); ALKALINE PHOSPHATASE 169 U/L (46-116); ASPARTATE AMINOTRANSFERASE 152 U/L (15-37); BILIRUBIN,DIRECT 0.5 mg/dL (0.0-0.2)
[2019-10-28 16:35] LABS: ALCOHOL, BLOOD < 3 mg/dL (0-0)
[2019-10-28] MEDS ORDERED: POTASSIUM CHLORIDE 20 MEQ TAB.PRT.SR PO ONE ×2 (16:48→17:00)
--- NOTE | 2019-10-28 16:51 | NUR ---
emt tech at bedside for ekg
--- NOTE | 2019-10-28 17:09 | NUR ---
GAVE MOVESHEET AND CLINICALS TO ADMITTING
--- NOTE | 2019-10-28 17:46 | NUR ---
URINE SENT TO LAB.
[2019-10-28 18:30] VITALS: BP 107/53
--- NOTE | 2019-10-28 18:42 | NUR ---
PER ADMITTING PT WILL GO TO [facility], WILL CALL BACK WHEN BED IS AVAILABLE
--- NOTE | 2019-10-28 19:00 | NUR ---
PER ADMITTING, NO BED ASSIGNMENT YET FROM [facility]
--- NOTE | 2019-10-28 19:10 | NUR ---
ENDORSED TO PHYLLIS SAWYER FOR YUSEF
--- NOTE | 2019-10-28 20:05 | NUR ---
PT SIGNED AMA. PT AAOX4. PT STATED WHERE HE WAS, YEAR, PRESIDENT, AND WHO WAS GOING TO PICK HIM UP. MD WAS AT BEDSIDE. VSS.
--- NOTE | 2019-10-28 20:11 | NUR ---
PT ACCEPTED AT [facility] DIRECT ADMIT TO ROOM 217-Jaxon RIVERA RN FOR REPORT, , AMBULANCE ETA [phone]
--- NOTE | 2019-10-28 20:30 | NUR ---
PT STATED HE PLACED HIS PHONE ON THE COUNTER WHEN HE CAME IN. NO PHONE WAS IN SIGHT SINCE THE PATIENT HAS BEEN HERE.
--- NOTE | 2019-10-28 20:37 | NUR ---
CALLED PT FATHER- MILO, STATES ON THE WAY TO WINDOWS SOFTWARE ENGINEER PT
--- NOTE | 2019-10-28 20:55 | NUR ---
PT WAS PICKED UP BY HIS FATHER. SPOKE TO FATHER, EXPLAINED SITUATION, AND WAS TOLD TO SEE A NEUROLOGIST. PT FATHER AND PT DECIDEDE TO GO HOME. LABS, CT, AND AMA FORM GIVEN TO PT. IV REMOVED. PT TOLD NOT TO DRIVE. Patient does not wish to proceed with medical care recommended by Dr. RASHEED. Patient given information related to possible complications, up to and including , which could occur as a result of leaving the hospital at this time. Patient verbalizes understanding of risks involved due to leaving against medical advice. Patient has signed AMA form.
== END 2019-10-28 20:57 | disposition left against medical advice (07) ==
LOC: ER 15:39
DX: S01.531A Puncture wound without foreign body of lip, initial encounter (principal); R56.9 Unspecified convulsions; E87.6 Hypokalemia; F10.20 Alcohol dependence, uncomplicated; I10 Essential (primary) hypertension; R00.0 Tachycardia, unspecified; Y90.0 Blood alcohol level of less than 20 mg/100 ml; Z79.899 Other long term (current) drug therapy; W26.8XXA Contact with other sharp object(s), not elsewhere classified, initial encounter; Y93.89 Activity, other specified; Y92.89 Other specified places as the place of occurrence of the external cause; Y99.8 Other external cause status
CPT/HCPCS: 36415; 70450; 71045; 72125; 80048; 80076; 80305; 80307; 82962; 83735; 85025; 85730; 93005; 96365; 96375; 99284; J1953; J2060; J7030; G0480

== ENCOUNTER 2019-12-01 05:52 | Emergency (ER) | payer MEDICAID ==
[~2019-12-01] VITALS: Ht 190.5 cm; Wt 108.9 kg
[~2019-12-01 05:52] MED LIST changes: -AMOX-430 PO; +COLC0.6C3 PO; -Colchicine PO; +DIPH25CA51 PO; -PANT40TA2 PO
--- NOTE | 2019-12-01 05:52 | NUR ---
BIB EMS C/O "I'VE BEEN DRINK A QUART OF VODKA X3 MONTHS & NOW I DON'T FEEL GOOD, I NEED SOMETHING TO CALM ME DOWN". PT C/O ANXIETY. DENIES SI OR HI. PT AAOX4 NO ACUTE DISTRESS NOTED, RESP EVEN AND UNLABORED. PLACE PT ON CARDIAC MONITORING, CONTINUOUS POX. PENDING ER MD DEL RIO.
--- NOTE | 2019-12-01 05:56 | NUR ---
ER MD AT BEDSIDE TO EVAL PT WITH ORDERS RECEIVED. WILL CARRY OUT ORDERS.
[2019-12-01] MEDS ORDERED: LORAZEPAM INJ 2 MG/ML VIAL ONE ×2 (06:03→09:30)
--- NOTE | 2019-12-01 06:08 | NUR ---
PT MEDICATED ORDERED.
[2019-12-01] MEDS ORDERED: IV NS 0.9% 1,000 ML BAG IV ONE (06:30)
[2019-12-01] MEDS ORDERED: LORAZEPAM INJ 2 MG/ML VIAL IVP ONE (06:30)
[2019-12-01 06:31] LABS: BASOPHILS # (AUTO) 0.1 /CMM (0.0-0.2); BASOPHILS % (AUTO) 1.4 % (0.0-2.0); EOSINOPHILS % (AUTO) 0.1 % (0.0-6.0); HEMATOCRIT 43 % (39-51); HEMOGLOBIN 14.7 g/dL (13.5-17.5); LYMPHOCYTES % (AUTO) 33.6 % (20.0-44.0); MEAN CORPUSCULAR HGB CONC 34 g/dl (31.0-36.0); MEAN CORPUSCULAR VOLUME 97 fL (80-96); MONOCYTES # (AUTO) 0.4 /CMM (0.1-1.30); MONOCYTES % (AUTO) 7.2 % (2.0-12.0); NEUTROPHILS # (AUTO) 3.4 /CMM (1.8-8.9); NEUTROPHILS % (AUTO) 57.7 % (43.0-81.0); PLATELET COUNT (AUTO) 153 /CMM (150-450); RED BLOOD CELL COUNT(AUTO) 4.44 MIL/uL (4.5-6.0)
--- NOTE | 2019-12-01 06:32 | NUR ---
PT STILL UNABLE TO PROVIDE URINE SAMPLE AT THIS TIME. NICOLÁS MEJIA MADE AWARE.
[2019-12-01 07:03] LABS: CALCIUM, SERUM 8.6 mg/dL (8.5-10.1); CARBON DIOXIDE 27 mmol/L (21-32); CHLORIDE 97 mmol/L (98-107); CREATININE 0.9 mg/dL (0.6-1.3); GLUCOSE 100 mg/dL (74-106); POTASSIUM 3.7 mmol/L (3.5-5.1); SODIUM SERUM 139 mmol/L (136-145); UREA NITROGEN, BLOOD 12 mg/dL (7-18)
--- NOTE | 2019-12-01 07:10 | NUR ---
URINE SAMPLE SENT TO LAB.
[2019-12-01 07:13] LABS: ALANINE AMINOTRANSFERASE 115 U/L (12-78); ALBUMIN 4.3 g/dL (3.4-5.0); ALCOHOL, BLOOD 388 mg/dL (0-0); ALKALINE PHOSPHATASE 195 U/L (46-116); ASPARTATE AMINOTRANSFERASE 167 U/L (15-37); BILIRUBIN,DIRECT 0.6 mg/dL (0.0-0.2); TOTAL PROTEIN, SERUM 7.5 g/dL (6.4-8.2)
[2019-12-01 07:14] LABS: ACETAMINOPHEN 0 ug/ml (10-30); SALICYLATE < 0.2 mg/dL (2.8-20.0)
[2019-12-01 07:34] LABS: APPEARANCE,URINE Clear (CLEAR); BILIRUBIN,URINE Negative (NEGATIVE); BLOOD, URINE Trace-intact Ery/uL (NEGATIVE); COLOR,URINE Yellow (YELLOW); KETONES,URINE 15 (NEGATIVE); LEUKOCYTE ESTERASE ,URINE Negative (NEGATIVE); NITRITE, URINE Negative (NEGATIVE); PH,URINE 6.5 (5.0-8.0); PROTEIN,URINE 30 mg/dl (NEGATIVE); UGLUCOSE Negative (NEGATIVE)
--- NOTE | 2019-12-01 07:59 | NUR ---
PATIENT RESTING, NO DISTRESS NOTED.
[2019-12-01 08:26] LABS: BACTERIA,URINE Rare /HPF (None Seen); MUCUS,URINE Rare /LPF (None Seen); SQUAMOUS EPITHELIAL CELL,UR Rare /HPF (None Seen); WBC,URINE 0-2 /HPF (0-3)
--- NOTE | 2019-12-01 08:53 | NUR ---
Received a call from [facility] [phone], will call back for updates.
[2019-12-01] MEDS ORDERED: LORAZEPAM INJ 2 MG/ML VIAL IV ONE (09:30)
--- NOTE | 2019-12-01 11:31 | NUR ---
FOLLOW UP WITH PINA CABAN, PER CM PATIENT STILL WAITING FOR A BED AT [facility].
--- NOTE | 2019-12-01 11:58 | NUR ---
MARCOS FROM [facility] CALLED AND STILL NO BED ASSIGNMENT AT [facility].
--- NOTE | 2019-12-01 12:07 | NUR ---
PT ACCEPTED TO [facility] BED 308-A ACCEPTING RN JANA NUMBER FOR REPORT [phone]
--- NOTE | 2019-12-01 12:32 | NUR ---
AMBULANCE ETA 45-60 MINUTES.
--- NOTE | 2019-12-01 12:54 | NUR ---
REPORT GIVEN TO JANA SAWYER AT [facility].
--- NOTE | 2019-12-01 13:33 | NUR ---
REPORT GIVEN TO EMT. PATIENT A/OX4, BREATHING EVEN AND UNLABORED, NO SOB NOTED. IN STABLE CONDITION. PATIENT LEFT THE FACILITY TO [facility].
[2019-12-01 13:34] VITALS: BP 156/92
== END 2019-12-01 13:35 | disposition short-term general hospital (02) ==
LOC: ER 05:53
DX: F10.239 Alcohol dependence with withdrawal, unspecified (principal); Z79.899 Other long term (current) drug therapy; Y90.8 Blood alcohol level of 240 mg/100 ml or more
CPT/HCPCS: 36415; 80048; 80076; 80305; 80307; 80329; 81001; 85025; 93005; 96374; 96376; 99285; G0480; J2060 ×2; J7030; 81000-TC

== ENCOUNTER 2020-03-11 14:44 | Emergency (ER) | payer MEDICAID ==
[~2020-03-11] VITALS: Ht 190.5 cm; Wt 114.3 kg
--- NOTE | 2020-03-11 14:47 | NUR ---
BIB RA 79 FROM HOME,C/O DIZZINESS X 3 DAYS, ADMIT TO DRINKING VODKA TODAY, TO ER BED 10, HOOKED TO MONITOR AND POX, CHANGED TO HOSP GOWN ,WARM BLANKET PROVIDED, AWAITING MD DEL RIO.
--- NOTE | 2020-03-11 14:54 | NUR ---
DR WILLIAMSON AT BEDSIDE
[2020-03-11] MEDS ORDERED: IV NS 0.9% 500 ML BAG IV ONE (15:00)
[2020-03-11 15:12] LABS: BASOPHILS # (AUTO) 0.3 /CMM (0.0-0.2); BASOPHILS % (AUTO) 4.5 % (0.0-2.0); EOSINOPHILS % (AUTO) 1.4 % (0.0-6.0); HEMATOCRIT 41 % (39-51); HEMOGLOBIN 13.8 g/dL (13.5-17.5); LYMPHOCYTES # (AUTO) 3.1 /CMM (0.8-4.8); LYMPHOCYTES % (AUTO) 48.5 % (20.0-44.0); MEAN CORPUSCULAR HGB CONC 34 g/dl (31.0-36.0); MEAN CORPUSCULAR VOLUME 98 fL (80-96); MONOCYTES # (AUTO) 0.9 /CMM (0.1-1.30); MONOCYTES % (AUTO) 14.7 % (2.0-12.0); NEUTROPHILS % (AUTO) 30.9 % (43.0-81.0); PLATELET COUNT (AUTO) 383 /CMM (150-450); RED BLOOD CELL COUNT(AUTO) 4.15 MIL/uL (4.5-6.0); WHITE BLOOD COUNT (AUTO) 6.3 K/uL (4.3-11.0)
[2020-03-11 15:27] LABS: CALCIUM, SERUM 8.2 mg/dL (8.5-10.1); CARBON DIOXIDE 25 mmol/L (21-32); CHLORIDE 100 mmol/L (98-107); CREATININE 0.9 mg/dL (0.6-1.3); GLUCOSE 100 mg/dL (74-106); POTASSIUM 3.6 mmol/L (3.5-5.1); SODIUM SERUM 137 mmol/L (136-145); UREA NITROGEN, BLOOD 10 mg/dL (7-18)
--- NOTE | 2020-03-11 15:29 | NUR ---
PATIENT NOT ABLE TO PROVIDE URINE SAMPLE AT THIS TIME, MADE AWARE
[2020-03-11 15:35] LABS: ALANINE AMINOTRANSFERASE 103 U/L (12-78); ALBUMIN 3.7 g/dL (3.4-5.0); ALCOHOL, BLOOD 387 mg/dL (0-0); ALKALINE PHOSPHATASE 174 U/L (46-116); ASPARTATE AMINOTRANSFERASE 92 U/L (15-37); BILIRUBIN,DIRECT 0.2 mg/dL (0.0-0.2); BILIRUBIN,TOTAL 0.6 mg/dL (0.2-1.0); TOTAL PROTEIN, SERUM 7.2 g/dL (6.4-8.2)
--- NOTE | 2020-03-11 16:47 | NUR ---
PARENTS RASHEED AND ZEYNEP LICEA CELL ([phone])
[2020-03-11 17:01] LABS: APPEARANCE,URINE Clear (CLEAR); BILIRUBIN,URINE Negative (NEGATIVE); BLOOD, URINE Negative Ery/uL (NEGATIVE); COLOR,URINE Yellow (YELLOW); KETONES,URINE Negative (NEGATIVE); LEUKOCYTE ESTERASE ,URINE Negative (NEGATIVE); NITRITE, URINE Negative (NEGATIVE); PH,URINE 6.5 (5.0-8.0); PROTEIN,URINE Negative (NEGATIVE); UGLUCOSE Negative (NEGATIVE); UROBILINOGEN,URINE 0.2 EU/dL (0.2)
--- NOTE | 2020-03-11 17:25 | NUR ---
patient in bed asleep, easily arousable by voice, hooked to monitor, will continue to monitor accordingly
--- NOTE | 2020-03-11 19:21 | NUR ---
IV removed. Catheter intact and site benign. Pressure and 4x4 applied to site. No bleeding noted. Patient ambulated to waiting room in stable condition. Patient will be picked up by parents. Written and verbal after care instructions given. Patient verbalizes understanding of instruction.
[2020-03-11 19:23] VITALS: BP 132/62
== END 2020-03-11 19:23 | disposition home or self-care (01) ==
LOC: ER 14:48
DX: S00.11XA Contusion of right eyelid and periocular area, initial encounter (principal); F10.959 Alcohol use, unspecified with alcohol-induced psychotic disorder, unspecified; R51 Headache; Z79.899 Other long term (current) drug therapy; Y90.8 Blood alcohol level of 240 mg/100 ml or more; W18.39XA Other fall on same level, initial encounter; Y93.89 Activity, other specified; Y92.89 Other specified places as the place of occurrence of the external cause; Y99.8 Other external cause status
CPT/HCPCS: 36415; 70450; 71045; 72125; 80048; 80076; 80305; 80307; 81001; 84484; 85025; 85730; 99285; J7040; 81000-TC; G0480

== ENCOUNTER 2020-04-27 12:31 | Emergency (ER) | payer MEDICAID ==
[~2020-04-27] VITALS: Ht 182.9 cm; Wt 115.2 kg
--- NOTE | 2020-04-27 12:40 | NUR ---
PT BIBRA FROM HOME TO ER BED . PER REPORT, FOUND ALTERED BY PARENTS. PT AWAKE ICT ACCOUNT MANAGER. PT STATES LAST ETOH SUNDAY. PT TACHY ICT ACCOUNT MANAGER. ANXIOUS. AWAITING MD DEL RIO.
--- NOTE | 2020-04-27 12:41 | NUR ---
DR MARTINEZ AT [facility] FOR EVAL.
[2020-04-27] MEDS ORDERED: ONDANSETRON HCL/PF 4 MG/2 ML VIAL ONE (12:46)
--- NOTE | 2020-04-27 12:50 | NUR ---
WBLOOD DRAWN AND SENT TO LAB.
[2020-04-27] MEDS ORDERED: IV NS 0.9% 1,000 ML BAG IV ONE (13:00)
[2020-04-27] MEDS ORDERED: ONDANSETRON HCL/PF 4 MG/2 ML VIAL IVP ONE (13:00)
[2020-04-27] MEDS ORDERED: LORAZEPAM INJ 2 MG/ML VIAL IV ONE ×2 (13:00→13:30)
[2020-04-27 13:02] LABS: BASOPHILS # (AUTO) 0.1 /CMM (0.0-0.2); BASOPHILS % (AUTO) 1.3 % (0.0-2.0); EOSINOPHILS % (AUTO) 0.4 % (0.0-6.0); HEMATOCRIT 44 % (39-51); HEMOGLOBIN 15.1 g/dL (13.5-17.5); LYMPHOCYTES # (AUTO) 1.7 /CMM (0.8-4.8); LYMPHOCYTES % (AUTO) 21.8 % (20.0-44.0); MEAN CORPUSCULAR HGB CONC 35 g/dl (31.0-36.0); MEAN CORPUSCULAR VOLUME 98 fL (80-96); MONOCYTES # (AUTO) 1.1 /CMM (0.1-1.30); MONOCYTES % (AUTO) 14.2 % (2.0-12.0); NEUTROPHILS % (AUTO) 62.3 % (43.0-81.0); PLATELET COUNT (AUTO) 383 /CMM (150-450); RED BLOOD CELL COUNT(AUTO) 4.45 MIL/uL (4.5-6.0)
[2020-04-27 13:12] LABS: CALCIUM, SERUM 11.5 mg/dL (8.5-10.1); CREATININE 1.1 mg/dL (0.6-1.3); POTASSIUM 3.5 mmol/L (3.5-5.1)
[2020-04-27 13:18] LABS: BILIRUBIN,DIRECT 0.7 mg/dL (0.0-0.2); BILIRUBIN,TOTAL 2.8 mg/dL (0.2-1.0); TOTAL PROTEIN, SERUM 8.1 g/dL (6.4-8.2)
[2020-04-27] MEDS ORDERED: LORAZEPAM INJ 2 MG/ML VIAL ONE (13:33)
--- NOTE | 2020-04-27 16:23 | NUR ---
Patient discharged to home in stable condition. Written and verbal after care instructions given. Patient verbalizes understanding of instruction.IV removed. Catheter intact and site benign. Pressure and 4x4 applied to site. No bleeding noted.
[2020-04-27 16:24] VITALS: BP 122/64
== END 2020-04-27 16:25 | disposition home or self-care (01) ==
LOC: ER 12:35
DX: F10.239 Alcohol dependence with withdrawal, unspecified (principal); R00.0 Tachycardia, unspecified; Y90.9 Presence of alcohol in blood, level not specified; Z79.899 Other long term (current) drug therapy
CPT/HCPCS: 36415; 80048; 80076; 85025; 96374; 96375; 96376; 99284; J2060 ×2; J2405; J7030

== ENCOUNTER 2020-07-24 09:24 | Emergency (ER) | payer MEDICAID ==
[~2020-07-24] VITALS: Ht 182.9 cm; Wt 115.2 kg
--- NOTE | 2020-07-24 09:28 | NUR ---
kendall, from home, panic attack, run out of ativan since yesterday, last alcohol drink 2 days ago. On room air, breathing evenly and unlabored. connected to the monitor and pulse ox. kept comfortable, will continue to monitor accordingly.
--- NOTE | 2020-07-24 09:50 | NUR ---
iv line started. blood drawn and sent to lab.
[2020-07-24] MEDS ORDERED: LORAZEPAM INJ 2 MG/ML VIAL ONE ×5 (09:51→16:16)
[2020-07-24] MEDS ORDERED: IV NS 0.9% 1,000 ML BAG IV ONE (10:00)
[2020-07-24] MEDS ORDERED: LORAZEPAM INJ 2 MG/ML VIAL IVP ONE (10:00)
[2020-07-24 10:06] LABS: BASOPHILS # (AUTO) 0.1 /CMM (0.0-0.2); BASOPHILS % (AUTO) 1.3 % (0.0-2.0); EOSINOPHILS % (AUTO) 1.8 % (0.0-6.0); HEMATOCRIT 39 % (39-51); HEMOGLOBIN 13.2 g/dL (13.5-17.5); LYMPHOCYTES # (AUTO) 1.1 /CMM (0.8-4.8); LYMPHOCYTES % (AUTO) 16.6 % (20.0-44.0); MEAN CORPUSCULAR HGB CONC 34 g/dl (31.0-36.0); MEAN CORPUSCULAR VOLUME 97 fL (80-96); MONOCYTES # (AUTO) 0.7 /CMM (0.1-1.30); MONOCYTES % (AUTO) 10.9 % (2.0-12.0); NEUTROPHILS # (AUTO) 4.4 /CMM (1.8-8.9); NEUTROPHILS % (AUTO) 69.4 % (43.0-81.0); PLATELET COUNT (AUTO) 178 /CMM (150-450); RED BLOOD CELL COUNT(AUTO) 3.99 MIL/uL (4.5-6.0); WHITE BLOOD COUNT (AUTO) 6.3 K/uL (4.3-11.0)
--- NOTE | 2020-07-24 10:08 | NUR ---
PT SHAKING, UNABLE TO DO EKG AT THIS TIME. DR. NOLASCO ASKED FOR MEDS TO TAKE EFFECT.
[2020-07-24 10:10] LABS: CARBON DIOXIDE 25 mmol/L (21-32); CHLORIDE 96 mmol/L (98-107); CREATININE 0.9 mg/dL (0.6-1.3); GLUCOSE 101 mg/dL (74-106); POTASSIUM 3.6 mmol/L (3.5-5.1); SODIUM SERUM 135 mmol/L (136-145); UREA NITROGEN, BLOOD 10 mg/dL (7-18)
[2020-07-24 10:15] LABS: ALANINE AMINOTRANSFERASE 74 U/L (12-78); ALBUMIN 3.9 g/dL (3.4-5.0); ALCOHOL, BLOOD 23 mg/dL (0-0); ALKALINE PHOSPHATASE 200 U/L (46-116); ASPARTATE AMINOTRANSFERASE 109 U/L (15-37); BILIRUBIN,DIRECT 0.4 mg/dL (0.0-0.2); BILIRUBIN,TOTAL 1.4 mg/dL (0.2-1.0); TOTAL PROTEIN, SERUM 7.7 g/dL (6.4-8.2)
[2020-07-24 10:18] LABS: ACETAMINOPHEN < 10 ug/ml (10-30)
[2020-07-24] MEDS ORDERED: LORAZEPAM INJ 2 MG/ML VIAL IV ONE ×4 (10:30→16:00)
[2020-07-24] MEDS ORDERED: CITA20TA16 PO (13:06)
[2020-07-24] MEDS ORDERED: PANT20TA17 PO (13:06)
--- NOTE | 2020-07-24 13:09 | NUR ---
negative covid19 result
[2020-07-24] MEDS ORDERED: LORA2TAB95 PO (13:16)
--- NOTE | 2020-07-24 13:32 | NUR ---
Spoke to [phone] Shannon for patient clinicals. Clinicals faxed to [phone]
--- NOTE | 2020-07-24 15:37 | NUR ---
PT GOING TO [facility] [address] DR. GAVINO TRAORE IS THE RN CALL [phone] FOR REPORT.
[2020-07-24] MEDS ORDERED: LABETALOL HCL IV 100MG VIAL IV ONE (16:00)
--- NOTE | 2020-07-24 16:13 | NUR ---
going to [facility] admiting md: dr jones number for report: [phone] going to [facility].b eta 1700
[2020-07-24] MEDS ORDERED: LABETALOL HCL IV 100MG VIAL ONE (16:16)
--- NOTE | 2020-07-24 16:42 | NUR ---
REPORT GIVEN TO EUGENIE SAWYER OF [facility] MS-TELE UNIT
[2020-07-24 17:34] VITALS: BP 167/96
--- NOTE | 2020-07-24 17:35 | NUR ---
PICKED UP BY [facility] AMBULANCE UNIT 24 IN STABLE CONDITION. PATIENT WILL BE TRANSFERRED TO [facility]. CLINICALS PROVIDED TO EMS.
== END 2020-07-24 17:42 | disposition short-term general hospital (02) ==
LOC: ER 09:29
DX: F10.139 Alcohol abuse with withdrawal, unspecified (principal); Y90.1 Blood alcohol level of 20-39 mg/100 ml; R07.9 Chest pain, unspecified; R74.01 Elevation of levels of liver transaminase levels; E87.1 Hypo-osmolality and hyponatremia; R94.31 Abnormal electrocardiogram [ECG] [EKG]; Z86.69 Personal history of other diseases of the nervous system and sense organs; Z20.828 Contact with and (suspected) exposure to other viral communicable diseases
CPT/HCPCS: 36415; 71045; 80048; 80076; 80299; 80307; 80320; 83735; 85025; 87426; 93005; 96361; 96374; 96375; 96376; 99291; C9803; J2060 ×5; J3490; J7030; G0480